=== PATIENT | female | born 1960 | race Caucasian/White ===

== ENCOUNTER → 2021-10-05 | Outpatient (CLI) | payer BC ==
--- NOTE | 2021-10-06 09:06 | CT ---
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 CONTRAST: CT scan of the chest, abdomen and pelvis is performed with Oral Contrast and with IV Contrast, patien t injected with 70 mL of Isovue 300. FINDINGS: LUNGS: There is some motion due to patient's breath. The lungs are grossly clear, there is no concern ing parenchymal mass or nodule identified. There is no pleural effusion or pneumothorax seen. The tracheobronchial tree is patent. MEDIASTINUM: There are no greater than 1 cm hilar or mediastinal lymph nodes. No pericardial effusi on is seen. AORTA: No significant abnormality is seen. OTHER: No additional significant abnormality is seen. LIVER/GB: Liver shows low attenuation possibly due to hepatic steatosis, liver is borderline enlarged , gallbladder unremarkable. PANCREAS: No significant abnormality is seen. SPLEEN: No significant abnormality is seen. ADRENALS: No significant abnormality is seen. KIDNEYS: No significant abnormality is seen. REPRODUCTIVE ORGANS: No gross abnormality seen. BOWEL: There is an infraumbilical abdominal wall hernia containing bowel loops, no evident obstructi on, some increased density within the surrounding fat suggests some inflammatory change. FREE AIR: No Free Air visible. ASCITES: None seen. RETROPERITONEAL ADENOPATHY: No retroperitoneal adenopathy is seen. LYMPH NODES: No greater than 1 cm abdominal or pelvic lymph nodes are appreciated. URINARY BLADDER: No significant abnormality is seen. PELVIC ADENOPATHY: None visualized. OSSEOUS STRUCTURES: Degenerative disc changes, multilevel spondylosis noted, facet arthropathy is gr eatest in the lumbar spine. IMPRESSION: Anterior abdominal wall hernia as described. No evident metastatic disease.
== END | disposition home or self-care (01) ==
LOC: RADCTMAIN 17:08
PROVIDERS: ATTEND Ophthalmology
DX: C69.31 Malignant neoplasm of right choroid (principal)
CPT/HCPCS: 71260; 74177; Q9967

== ENCOUNTER 2022-02-28 10:19 | Observation (INO) | payer BC ==
[~2022-02-28 10:19] MED LIST: ACETAMINOPHEN TAB 500 MG TAB PO PRN; HEPARIN SODIUM,PORCINE/PF 5,000 UNIT/0.5 ML SYRINGE SQ PRN; MIDAZOLAM 2 MG/2 ML VIAL IV PRN; ONDANSETRON 4 MG/2 ML VIAL IVP ONE; SCOPOLAMINE 1 MG/72 HR PATCH TRANSDERM ONE
--- NOTE | 2022-02-28 10:31 | P.GSHP ---
History of Present Illness H&P Date: 02/28/22 Chief Complaint: Abdominal wall hernia 61-year-old female here today for elective repair abdominal wall hernia. Bulge present at the umbilicus. Recent CAT scan shows fat and small bowel within the hernia. Having more frequent episodes of discomfort there. No nausea or vo miting. 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, malignant melanoma to eye, umbilical hernia History of Any Multi-Drug Resistant Organisms: None Reported Past Surgical History: Section Additional Past Surgical History / Comment(s): surgery to remove rt eye, Past Anesthesia/Blood Transfusion Reactions: No Reported Reaction Smoking Status: Never smoker Medications and Allergies Home Medications Medication Instructions Recorded Confirmed Type Aspirin [Adult Low Dose Aspirin EC] 81 mg PO DAILY 02/24/22 02/24/22 History Bisoprolol Fumarate [Zebeta] 10 mg PO DAILY 02/24/22 02/24/22 History Multivitamins, Thera [Multivitamin 1 tab PO DAILY 02/24/22 02/24/22 History (formulary)] Allergies Allergy/AdvReac Type Severity Reaction Status Date / Time No Known Allergies Allergy Verified 02/24/22 13:55 Surgical - Exam Physical exam: General: Well-developed, well-nourished HEENT: Normocephalic, sclerae nonicteric Abdomen: Nontender, nondistended, incarcerated hernia near the umbilical region, unable to palpate fascial defect Extremities: No edema Neuro: Alert and oriented Assessment and Plan (1) Abdominal wall hernia Narrative/Plan: 61-year-old female with abdominal wall hernia. Whether this represents an incisional or umbilical hernia unclear at this time. We'll proceed with open repair with mesh at this time. Risks of bleeding, infection, recurrence, bladder and bowel injury, numbness, nerve injury were discussed with the patient. The patient understands and wishes to proceed. Current Visit: Yes Status: Acute Code(s): K43.9 - VENTRAL HERNIA WITHOUT OBSTRUCTION OR GANGRENE SNOMED Code(s): 659034017
[2022-02-28 11:18] LABS: Glucose,Whole Blood 264 mg/dL (70-110)
[2022-02-28] MEDS: LACTATED RINGERS 1,000 ML IV SCH (11:18)
[2022-02-28] MEDS: DEXAMETHASONE SOD PHOSPHATE 4 MG/ML 1 ML VIAL IV ONE ×2 (11:19→17:52)
[2022-02-28 11:25] LABS: Glucose,Whole Blood 246 mg/dL (70-110)
[2022-02-28] MEDS ORDERED: INSULIN ASPART (NovoLOG) 100 UNIT/ML VIAL SQ ONE (11:28)
[2022-02-28] MEDS ORDERED: LIDOCAINE 2% INJ 20 MG/ML (2 ML VIAL) ONE (11:38)
[2022-02-28] MEDS ORDERED: MIDAZOLAM 2 MG/2 ML VIAL ONE (11:38)
[2022-02-28] MEDS ORDERED: fentaNYL (PF) 50 MCG/ML 2 ML AMP ONE (11:38)
[2022-02-28] MEDS ORDERED: ROCURONIUM 10 MG/ML (5 ML VIAL) IV ONE (11:38)
[2022-02-28] MEDS ORDERED: PROPOFOL 10 MG/ML 20 ML VIAL IV ONE (11:38)
[2022-02-28] MEDS ORDERED: HYDROmorphone (PF) 1 MG/ML ONE (11:38)
[2022-02-28] MEDS ORDERED: BUPIVACAINE (PF) 0.25% 30 ML VIAL SQ ONE (12:02)
[2022-02-28] MEDS ORDERED: NALOXONE 0.4 MG/ML 1 ML VIAL IV PRN (13:29)
[2022-02-28] MEDS ORDERED: ONDANSETRON 4 MG/2 ML VIAL IVP PRN (13:31)
[2022-02-28] MEDS ORDERED: traMADol 50 MG TAB PO PRN (13:31)
[2022-02-28] MEDS ORDERED: HYDROmorphone 1 MG/ML 1 ML SYRINGE IVP PRN (13:31)
--- NOTE | 2022-02-28 13:38 | P.OP ---
Date of Procedure: 02/28/22 Procedure(s) Performed: PREOPERATIVE DIAGNOSIS: Incarcerated abdominal wall hernia POSTOPERATIVE DIAGNOSIS: Incarcerated umbilical and ventral hernia PROCEDURE: Open repair incarcerated umbilical and ventral hernia with mesh SURGEON: Dr. Pretty ANESTHESIA: General OPERATIVE PROCEDURE DETAILS: Patient placed on the operating table in the supine position. Abdomen was prepped and draped in usual sterile fashion. The previous incision was re-incised and extended superiorly. This was later lengthened further superiorly after a second incarcerated ventral hernia was found. Dissection through the subcutaneous tissues took place using electrocautery. A large hernia was identified. The hernia sac was carefully dissected down to the level of the fascia where it was excised. This appeared to represent an umbilical hernia. There was omentum and small bowel present within the hernia sac. The structures reduced back into the peritoneal cavity. The preperitoneal space was dissected. Unfortunately I could not dissect the preperitoneal space on the right-hand side as it kept tearing because it was so thin. As I was dissecting superiorly we encountered an incarcerated ventral hernia. This was reduced. The fascia was cleared above and below the hernia sites. The 2 defects were included into one fascial opening. Initially the 2 defects measured 1.5 x 1.5 cm for the ventral and 3 x 4 cm for the umbilical. These were included into one fascial defect measuring 6 x 4 cm. The 8 x 12 cm Ventrio mesh was utilized and placed beneath the fascia. This is sutured to the fascia using trans-fascial 0 Ethibond sutures. The secure strap was also utilized circumferentially. The fascial defect was then reapproximated using interrupted mattress sutures with 0 Ethibond. The folding edge was sutured down using 0 Ethibond sutures as well. A drain was placed anterior to the fascial closure exiting through the left lower quadrant. This was sutured to the skin using a 3-0 silk stitch. The subcutaneous tissues were closed using 3-0 Vicryl sutures. The skin was closed using bandar. Sterile dressings were applied. TYPE OF MESH USED: 12 x 8 cm Ventrio LOCATION OF MESH: Sub-lay partially intraperitoneal FIXATION: Trans-fascial 0 Ethibond sutures PREOPERATIVE DISCUSSION ON SMOKING CESSASTION: Yes PREOPERATIVE DISCUSSION ON MORBID OBESITY: Yes PREOPERATIVE DISCUSSION ON APPROPRIATE USE OF NARCOTIC USE: Yes PREOPERATIVE EDUCATION: Multi Modal, Smoking Cessation and Weight Loss with BMI over 35. DISPOSITION: Stable to recovery room
[2022-02-28 13:56] LABS: Glucose,Whole Blood 203 mg/dL (70-110)
[2022-02-28] MEDS ORDERED: LACTATED RINGERS 1,000 ML IV ONE (13:57)
[2022-02-28] MEDS: HYDROmorphone 0.5 MG/0.5 ML SYRINGE IVP PRN ×2 (14:19→15:13)
[2022-02-28] MEDS ORDERED: PANTOPRAZOLE 40 MG/10 ML VIAL IV SCH (16:30)
[2022-02-28] MEDS: KETOROLAC 15 MG/ML 1 ML VIAL IVP SCH ×2 (18:54→23:56)
[2022-02-28] MEDS: D5-0.45% NACL WITH KCL 20MEQ/L 1,000 ML IV SCH (18:54)
[2022-02-28] MEDS: DOCUSATE 100 MG CAP PO SCH (21:38)
--- NOTE | 2022-02-28 22:50 | P.CONS ---
History of Present Illness - Reason for Consult Consult date: 02/28/22 post op medical management - Chief Complaint ubilical hernia - History of Present Illness 61 year old female with obesity and hypertension controlled with meds patient presented today for scheduled umbilical hernia repair , tolerated procedure well, no observed immediate post op complications, denies any fever, chills, chest pain , SOB. abd pain well controlled post op. tolerated PO intake patient denies any smoking, illicit drugs, or heavy alcohol Review of Systems Pertinent positives as noted in HPI. 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, malignant melanoma to eye, umbilical hernia History of Any Multi-Drug Resistant Organisms: None Reported Past Surgical History: Section Additional Past Surgical History / Comment(s): surgery to remove rt eye, Past Anesthesia/Blood Transfusion Reactions: No Reported Reaction Smoking Status: Never smoker Medications and Allergies Home Medications Medication Instructions Recorded Confirmed Type Aspirin [Adult Low Dose Aspirin EC] 81 mg PO DAILY 02/24/22 02/28/22 History Bisoprolol Fumarate [Zebeta] 10 mg PO DAILY 02/24/22 02/28/22 History Multivitamins, Thera [Multivitamin 1 tab PO DAILY 02/24/22 02/28/22 History (formulary)] Allergies Allergy/AdvReac Type Severity Reaction Status Date / Time acetaminophen [From Tylenol] AdvReac PALPITATION Verified 02/28/22 11:05 S Physical Exam Vitals: Vital Signs Temp Pulse Resp BP Pulse Ox 02/28/22 20:03 98.4 F 74 16 143/72 93 L 02/28/22 16:36 98.5 F 76 16 137/81 91 L 02/28/22 15:45 67 16 116/56 97 02/28/22 15:15 68 16 118/57 98 02/28/22 15:13 63 16 122/56 98 02/28/22 14:52 59 L 16 125/60 98 02/28/22 14:31 66 16 122/58 98 02/28/22 14:19 68 16 143/61 95 02/28/22 14:14 67 16 132/63 99 02/28/22 14:00 67 16 132/63 99 02/28/22 13:55 68 16 127/58 97 02/28/22 13:47 68 16 127/58 97 02/28/22 13:38 97.2 F L 70 18 141/64 98 02/28/22 11:15 97.8 F 72 16 154/93 97 Intake and Output 02/28/22 02/28/22 02/28/22 06:59 14:59 22:59 Intake Total 1050 Output Total 10 Balance 1040 Intake: IV 1050 Output: Estimated Blood Loss 10 Other: # Voids 1 Weight 103.5 kg Constitutional: No acute distress, conversant, pleasant Eyes: Anicteric sclerae, moist conjunctiva, Lt Pupil round reactive to light, prosthetic right eye ENMT: NC/AT Oropharynx clear, no erythema, or exudates Neck: Supple, no masses, or JVD No carotid bruits No thyromegaly Lungs: Clear to auscultation Clear to percussion Normal respiratory effort, no accessory muscle use Cardiovascular: Heart regular in rate and rhythm, No murmurs, gallops, or rubs No peripheral edema Abdominal: Soft diffuse mild discomfort to palpation , Normoactive bowel sounds abd binder in place, dry intact and clean Skin: Normal temperature, tone, texture, turgor Extremities: No digital cyanosis No clubbing Pedal pulses intact and symmetrical Radial pulses intact and symmetrical No calf tenderness Psychiatric: Alert and oriented to person, place and time Appropriate affect fair judgement Neuro Muscles Strength 5/5 in all 4 extremities Sensation to light touch grossly present throughout Cranial nerves II-XII grossly intact Lymphatics: no palpable cervical or supraclavicular lymph nodes Results Labs: Abnormal Lab Results - Last 24 Hours (Table) 02/28/22 02/28/22 02/28/22 Range/Units 11:16 11:22 13:53 POC Glucose (mg/dL) 264 H 246 H 203 H (70-110) mg/dL Assessment and Plan Assessment: umblical hernia post surgical repair, POD zero pain control IVF hydration advance diet as tolerated hypertension controlled resume home meds, bisoprolol full code DVT PPX mechanical
[2022-03-01] MEDS: D5-0.45% NACL WITH KCL 20MEQ/L 1,000 ML IV SCH ×3 (03:38→22:12)
[2022-03-01] MEDS: KETOROLAC 15 MG/ML 1 ML VIAL IVP SCH ×4 (06:12→23:38)
[2022-03-01] MEDS: LACTATED RINGERS 1,000 ML IV SCH (06:38)
[2022-03-01] MEDS: BISOPROLOL 5 MG TAB PO SCH (09:10)
[2022-03-01] MEDS: PANTOPRAZOLE 40 MG TABLET PO SCH (09:11)
[2022-03-01] MEDS: DOCUSATE 100 MG CAP PO SCH ×2 (09:11→21:59)
[2022-03-01 09:22] LABS: African American GFR (CKD) 106.9 (60.0-200.0); Albumin 3.4 g/dL (3.8-4.9); Albumin/Globulin Ratio 1.48 (1.60-3.17); Anion Gap 11.6 mmol/L (10.00-18.00); BUN/Creat Ratio 14.43 Ratio (12.00-20.00); Blood Urea Nitrogen 10.1 mg/dL (9.0-27.0); Calcium 8.7 mg/dL (8.7-10.3); Carbon Dioxide 26.4 mmol/L (20.0-27.5); Globulin 2.3 g/dL (1.6-3.3); Non-African American GFR(CKD) 92.2 (60.0-200.0); Potassium 4.1 mmol/L (3.5-5.5); Total Bilirubin 0.7 mg/dL (0.30-1.20); Total Protein 5.7 g/dL (6.2-8.2)
[2022-03-01 12:07] LABS: Basophils % (A) 0 %; Eosinophils # (A) 0.1 k/uL (0-0.7); Eosinophils % (A) 1 %; HCT 41.3 % (34.0-46.0); Lymphocytes # (A) 1.9 k/uL (1.0-4.8); Lymphocytes % (A) 23 %; MCH 33.8 pg (25.0-35.0); MCHC 36.3 g/dL (31.0-37.0); MCV 93.2 fL (80.0-100.0); Mean Platelet Volume 8.1; Monocytes # (A) 0.6 k/uL (0-1.0); Monocytes % (A) 7 %; Neutrophils # (A) 5.7 k/uL (1.3-7.7); Neutrophils % (A) 67 %; Platelet Count 180 k/uL (150-450); RBC 4.43 m/uL (3.80-5.40); RDW 12.7 % (11.5-15.5); WBC 8.5 k/uL (3.8-10.6)
--- NOTE | 2022-03-01 13:15 | P.PN ---
Subjective Progress Note Date: 03/01/22 CHIEF COMPLAINT: Incarcerated umbilical and ventral hernia HISTORY OF PRESENT ILLNESS: Patient is postop day #1 status post open repair of incarcerated umbilical and ventral hernia with mesh. Patient reports having a lot of pain with movement. She has not been out of bed since surgery. She denies any nausea or vomiting. She is having a small amount of flatus. She is tolerating diet. Afebrile. WBC is 8.5 Hgb is 15 platelets 180 sodium is 136 potassium 4.1 creatinine 0.7 PHYSICAL EXAM: VITAL SIGNS: Reviewed. GENERAL: Well-developed in no acute distress. HEENT: No sclera icterus. Extraocular movements grossly intact. Moist buccal mucosa. Head is atraumatic, normocephalic. ABDOMEN: Soft. Nondistended. Mild incisional tenderness. Incisional dressing clean dry and intact. RADHA drain serosanguineous 30 mL NEUROLOGIC: Alert and oriented. Cranial nerves II through XII grossly intact. ASSESSMENT: 1. Incarcerated umbilical and ventral hernia status post open repair with mesh PLAN: -Continue pain management -Continue regular diet -Encouraged patient to increase activity level -Agree with PT OT consults -GI prophylaxis Protonix and DVT prophylaxis subcu Heparin Physician Instrumentation Fitter note has been reviewed by physician. Signing provider agrees with the documented findings, assessment, and plan of care. Patient seems to be doing well today. She is out of bed to the chair currently. Increased discomfort with movement. Gradually increase activity. Possible discharge tomorrow or . Objective - Vital Signs Vital signs: Vital Signs Temp 98.7 F 03/01/22 05:00 Pulse 73 03/01/22 05:00 Resp 16 03/01/22 05:00 BP 144/73 03/01/22 05:00 Pulse Ox 95 03/01/22 05:00 FiO2 Intake & Output 02/28/22 03/01/22 03/01/22 18:59 06:59 18:59 Intake Total 1050 1777 Output Total 10 30 Balance 1040 1747 Weight 103.5 kg Intake: IV 1050 Intake, IV Titration 1000 Amount D5-0.45% NaCl with KCl 1000 20Meq/l 1,000 ml @ 100 mls/hr IV .Q10H DIVINA Rx#: [id number] Oral 777 Output: Drainage 30 Right Lower Abdomen 30 Estimated Blood Loss 10 Other: Voiding Method Toilet # Voids 1 3 - Labs CBC & Chem 7: 03/01/22 11:52 03/01/22 06:08 Labs: Abnormal Lab Results - Last 24 Hours (Table) 02/28/22 03/01/22 Range/Units 13:53 06:08 Glucose 257 H (70-110) mg/dL POC Glucose (mg/dL) 203 H (70-110) mg/dL Total Protein 5.7 L (6.2-8.2) g/dL Albumin 3.4 L (3.8-4.9) g/dL Albumin/Globulin Ratio 1.48 L (1.60-3.17) g/dL
[2022-03-01] MEDS: HEPARIN SODIUM,PORCINE/PF 5,000 UNIT/0.5 ML SYRINGE SQ SCH ×2 (13:39→21:59)
--- NOTE | 2022-03-01 13:55 | P.PN ---
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 She is currently admitted under Gen. surgery team status post open repair of incarcerated umbilical and ventral hernia completed 02/28/[address] Pretty. We have been consulted for medical management throughout patient's hospitalization. Physical exam: Patient seen and fully evaluated at bedside this morning. Patient reports she is tolerating oral intake and denies having any postoperative nausea or vomiting at this time. Patient denies passing any flatus or having a bowel movement in postop period. Patient educated on the importance of splinting, deep breathing and coughing exercises as well as use of incentive spirometry. Morning labs reviewed and stable with the exception of elevated glucose levels. We will place patient on glycemic protocol with NovoLog sliding scale and obtain a STAT hemoglobin A1c. Vital signs reviewed and stable. General: Nontoxic, no distress and appears stated age. Derm: Skin warm and dry, normal coloration for ethnicity. Head: Atraumatic, normocephalic and symmetric. Eyes: EOMs intact, no lid lag, and anicteric sclera Mouth: no lip lesions, mucus membranes moist Cardiovascular: regular rate and rhythm with normal S1S2, systolic murmur, positive posterior tibial pulses bilaterally, and cap refill < 2 seconds. Lungs: Respirations even, regular, and unlabored on room air. Lungs CTA bilaterally, no rhonchi, no rales, no wheezing, and no accessory muscle usage. Abdominal: soft, nontender to palpation, no guarding, no appreciable organomegaly. Obese Ext: ROM intact. No gross muscle atrophy, no edema, no contractures Neuro: Speech clear, face symmetrical and CN II-XII grossly intact with no noted focal neuro deficits Psych: Alert and oriented to person, place, time, and situation. Appropriate and pleasant affect. Assessment and Plan of Care: Status post open repair of incarcerated umbilical and ventral hernia -Management per primary admitting general surgery team including wound/drain care, DVT prophylaxis, pain management, and advancement of diet. -Continue GI prophylaxis with Protonix 40 mg daily. -Encourage coughing, deep breathing, and splinting. -Encourage use of incentive spirometry 10-15 times hourly while awake. -Currently DVT prophylaxis with heparin. Hyperglycemia -Patient will be placed on glycemic protocol with NovoLog sliding scale and a stat hemoglobin A1c to be obtained. Hypertension Monitor vital signs and continue daily medication regimen with bisoprolol. History of malignant melanoma of right eye -Provide assistance only as needed. Obesity with BMI of 43.1 kg/m -Recommend structured outpatient weight management program. Thank you for allowing us to participate in the care of this pleasant patient. Do not hesitate to contact us with questions. Someone can be reached from the [facility] hospitalist group all hours of the day at [phone] or via [facility]. Objective - Vital Signs Vital signs: Vital Signs Temp 98.7 F 03/01/22 05:00 Pulse 73 03/01/22 05:00 Resp 16 03/01/22 05:00 BP 144/73 03/01/22 05:00 Pulse Ox 95 03/01/22 05:00 FiO2 Intake & Output 02/28/22 03/01/22 03/01/22 18:59 06:59 18:59 Intake Total 1050 1777 Output Total 10 30 Balance 1040 1747 Weight 103.5 kg Intake: IV 1050 Intake, IV Titration 1000 Amount D5-0.45% NaCl with KCl 1000 20Meq/l 1,000 ml @ 100 mls/hr IV .Q10H DIVINA Rx#: [id number] Oral 777 Output: Drainage 30 Right Lower Abdomen 30 Estimated Blood Loss 10 Other: # Voids 1 3 - Labs CBC & Chem 7: 03/01/22 11:52 03/01/22 06:08 Labs: Abnormal Lab Results - Last 24 Hours (Table) 02/28/22 02/28/22 02/28/22 Range/Units 11:16 11:22 13:53 POC Glucose (mg/dL) 264 H 246 H 203 H (70-110) mg/dL Assessment and Plan Assessment: Attending note Chente Verdugo NP rendered care for this patient independently, reviewed the findings and plan as documented in the note above. I did not physically speak with our examined the patient on this date.
[2022-03-01] MEDS ORDERED: DEXTROSE 50% SYRINGE 50 ML IVP PRN ×2 (19:09)
[2022-03-01 21:58] LABS: Glucose,Whole Blood 251 mg/dL (70-110)
[2022-03-01] MEDS: INSULIN ASPART (NovoLOG) 100 UNIT/ML VIAL SQ SCH (21:59)
[2022-03-02] MEDS: KETOROLAC 15 MG/ML 1 ML VIAL IVP SCH ×2 (05:40→13:50)
[2022-03-02] MEDS: LACTATED RINGERS 1,000 ML IV SCH (07:57)
[2022-03-02 08:01] LABS: Glucose,Whole Blood 250 mg/dL (70-110)
[2022-03-02] MEDS: BISOPROLOL 5 MG TAB PO SCH (09:07)
[2022-03-02] MEDS: DOCUSATE 100 MG CAP PO SCH (09:07)
[2022-03-02] MEDS: INSULIN ASPART (NovoLOG) 100 UNIT/ML VIAL SQ SCH (09:07)
[2022-03-02] MEDS: PANTOPRAZOLE 40 MG TABLET PO SCH (09:07)
[2022-03-02] MEDS: HEPARIN SODIUM,PORCINE/PF 5,000 UNIT/0.5 ML SYRINGE SQ SCH (09:08)
[2022-03-02] MEDS: D5-0.45% NACL WITH KCL 20MEQ/L 1,000 ML IV SCH (09:08)
[2022-03-02 11:42] LABS: Glucose,Whole Blood 263 mg/dL (70-110)
[2022-03-02 11:57] VITALS: BP 129/77; PULSE 63; RESP 18; TEMP 98.3
--- NOTE | 2022-03-02 14:04 | P.DS ---
Providers Date of admission: 03/01/22 09:09 Expected date of discharge: 03/02/22 Attending physician: Bakari Pretty Consults: 02/28/22 13:31 Consult Physician Routine Consulting Provider: Mable Howard Consult Reason/Comments: Medical management Do you want consulting provider notified?: Yes Primary care physician: Haresh Smith Hospital Course: Discharge diagnosis 1. Incarcerated umbilical and ventral hernia status post open repair of incarcerated umbilical and ventral hernia with mesh 2. New diagnosis of Diabetes mellitus seen by medicine service and started on diabetes medications Hospital course This is a 61-year-old female who presented for an elective repair of abdominal wall hernia. Patient is status post open repair of incarcerated umbilical and ventral hernia with mesh. Patient's pain is controlled. She is up and ambulating. She is tolerating diet. She is having bowel movements and flatus. Afebrile. She is stable for discharge. Please refer to chart for any further details. Physician Cigarette Making Machine Operator note has been reviewed by physician. Signing provider agrees with the documented findings, assessment, and plan of care. Patient doing well today. Pain is better controlled. RADHA drain serosanguineous. May discharge today. Follow-up 1 to 2 weeks. Patient Condition at Discharge: Stable Plan - Discharge Summary Discharge Rx Participant: No New Discharge Prescriptions: New Semaglutide [Rybelsus] 3 mg PO DAILY 30 Days #30 tab metFORMIN HCL 500 mg PO BID 30 Days #60 tablet traMADol HCl [Ultram] 50 mg PO Q6HR PRN 3 Days #12 tab PRN Reason: Pain Continue Bisoprolol Fumarate [Zebeta] 10 mg PO DAILY Multivitamins, Thera [Multivitamin (formulary)] 1 tab PO DAILY Aspirin [Adult Low Dose Aspirin EC] 81 mg PO DAILY Discharge Medication List Aspirin [Adult Low Dose Aspirin EC] 81 mg PO DAILY 02/24/22 [History] Bisoprolol Fumarate [Zebeta] 10 mg PO DAILY 02/24/22 [History] Multivitamins, Thera [Multivitamin (formulary)] 1 tab PO DAILY 02/24/22 [History] Semaglutide [Rybelsus] 3 mg PO DAILY 30 Days #30 tab 03/02/22 [Rx] metFORMIN HCL 500 mg PO BID 30 Days #60 tablet 03/02/22 [Rx] traMADol HCl [Ultram] 50 mg PO Q6HR PRN 3 Days #12 tab 03/02/22 [Rx] Follow up Appointment(s)/Referral(s): Bakari Pretty MD [Medical Doctor] - 03/16/22 3:45 pm [facility] [NON-STAFF] - 1 Week Haresh Smith MD [Primary Care Provider] - 1-2 Days (Patient needs to call doctors office to make a follow up appointment) Patient Instructions/Handouts: Tramadol (By mouth), Metformin (By mouth), Semaglutide (By mouth), Type 2 Diabetes in Adults: New Diagnosis (DC) Activity/Diet/Wound Care/Special Instructions: No driving while taking Ultram No lifting over 10 pounds You may shower. No soaking or tub baths for 2 weeks Very light activity until you are reevaluated at your follow up appointment with your surgeon Keep a log of RADHA drain output and bring with you to your follow-up appointment Milk/strip drains 2-3 times a day Patient is to call office when RADHA drain output is less than 20 mL for 24 hour period for 2 days in a row. At that time patient can have RADHA drain removed in office. Discharge Disposition: HOME SELF-CARE
--- NOTE | 2022-03-02 19:10 | P.PN ---
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 She is currently admitted under Gen. surgery team status post open repair of incarcerated umbilical and ventral hernia completed 02/28/[address] Pretty. We have been consulted for medical management throughout patient's hospitalization. Patient was noted to have elevated blood glucose levels. Hemoglobin A1c was ordered resulting at 10.2%. Had long discussion with patient regarding new diagnosis of diabetes mellitus. Per recent guidelines patient being started on a GLP-1 receptor agonist Rybelsus and metformin. Patient being discharged home with glucometer and glucose testing supplies and arrangements have been made for patient to obtain all of these prior to discharge with case management. Medically, patient is stable for discharge home at this time once cleared by primary admitting general surgery team. Patient to follow-up with PCP for continued long-term monitoring and management of her newly diagnosed diabetes. Patient was also educated on lifest yle changes and diet modifications to improve hemoglobin A1c levels. Physical exam: Patient seen and fully evaluated at bedside this morning. Patient reports she is tolerating oral intake and denies having any postoperative nausea or vomiting at this time. Patient denies passing any flatus or having a bowel movement in postop period. Patient educated on the importance of splinting, deep breathing and coughing exercises as well as use of incentive spirometry. Morning labs reviewed and stable with the exception of elevated glucose levels. We will place patient on glycemic protocol with NovoLog sliding scale and obtain a STAT hemoglobin A1c. Vital signs reviewed and stable. General: Nontoxic, no distress and appears stated age. Derm: Skin warm and dry, normal coloration for ethnicity. Head: Atraumatic, normocephalic and symmetric. Eyes: EOMs intact left eye, no lid lag, and anicteric sclera of left eye. Right eye is a glass eye Mouth: no lip lesions, mucus membranes moist Cardiovascular: regular rate and rhythm with normal S1S2, systolic murmur, positive posterior tibial pulses bilaterally, and cap refill < 2 seconds. Lungs: Respirations even, regular, and unlabored on room air. Lungs CTA bilaterally, no rhonchi, no rales, no wheezing, and no accessory muscle usage. Abdominal: soft, nontender to palpation, no guarding, no appreciable organomegaly. Obese Ext: ROM intact. No gross muscle atrophy, no edema, no contractures Neuro: Speech clear, face symmetrical and CN II-XII grossly intact with no noted focal neuro deficits Psych: Alert and oriented to person, place, time, and situation. Appropriate and pleasant affect. Assessment and Plan of Care: Status post open repair of incarcerated umbilical and ventral hernia -Management per primary admitting general surgery team including wound/drain care, DVT prophylaxis, pain management, and advancement of diet. -Continue GI prophylaxis with Protonix 40 mg daily. -Encourage coughing, deep breathing, and splinting. -Encourage use of incentive spirometry 10-15 times hourly while awake. -Currently DVT prophylaxis with heparin. Newly diagnosed diabetes mellitus with hemoglobin A1c of 10.2% -Patient being started on a GLP-1 receptor agonist Rybelsus and metformin. Hypertension Monitor vital signs and continue daily medication regimen with bisoprolol. History of malignant melanoma of right eye -Provide assistance only as needed. Obesity with BMI of 43.1 kg/m -Recommend structured outpatient weight management program. Thank you for allowing us to participate in the care of this pleasant patient. Do not hesitate to contact us with questions. Someone can be reached from the [facility] hospitalist group all hours of the day at [phone] or via [employer]. Chente Verdugo NP rendered care for this patient independently, reviewed the findings and plan as documented in the note above. I did not physically speak with or examine the patient on this date. Objective - Vital Signs Vital signs: Vital Signs Temp 99.5 F 03/02/22 05:39 Pulse 86 03/02/22 05:39 Resp 20 03/02/22 05:39 BP 158/73 03/02/22 05:39 Pulse Ox 92 L 03/02/22 05:39 FiO2 Intake & Output 03/01/22 03/02/22 03/02/22 18:59 06:59 18:59 Intake Total 1200 1200 Output Total 30 Balance 1170 1200 Intake: Intake, IV Titration 1200 1200 Amount D5-0.45% NaCl with KCl 1200 1200 20Meq/l 1,000 ml @ 100 mls/hr IV .Q10H DIVINA Rx#: [id number] Output: Drainage 30 Right Lower Abdomen 30 Other: Voiding Method Toilet Toilet # Voids 1 - Labs CBC & Chem 7: 12/13/22 11:52 03/01/22 06:08 Labs: Abnormal Lab Results - Last 24 Hours (Table) 03/01/22 03/01/22 03/01/22 Range/Units 06:08 11:52 21:37 Glucose 257 H (70-110) mg/dL POC Glucose (mg/dL) 251 H (70-110) mg/dL Hemoglobin A1c 10.2 H (0.0-6.0) % Total Protein 5.7 L (6.2-8.2) g/dL Albumin 3.4 L (3.8-4.9) g/dL Albumin/Globulin Ratio 1.48 L (1.60-3.17) g/dL 03/02/22 Range/Units 07:59 Glucose (70-110) mg/dL POC Glucose (mg/dL) 250 H (70-110) mg/dL Hemoglobin A1c (0.0-6.0) % Total Protein (6.2-8.2) g/dL Albumin (3.8-4.9) g/dL Albumin/Globulin Ratio (1.60-3.17) g/dL
== END 2022-03-02 16:23 | disposition home or self-care (01) ==
LOC: OR 10:19 → 5NMEDONC 13:42 → OR 03-01 09:09
PROVIDERS: ADMIT Surgery; ATTEND Surgery
DX: K43.6 Other and unspecified ventral hernia with obstruction, without gangrene (principal); K42.0 Umbilical hernia with obstruction, without gangrene; E11.65 Type 2 diabetes mellitus with hyperglycemia; I10 Essential (primary) hypertension; E66.9 Obesity, unspecified; Z68.41 Body mass index [BMI] 40.0-44.9, adult; Z85.840 Personal history of malignant neoplasm of eye; Z79.82 Long term (current) use of aspirin; Z79.899 Other long term (current) drug therapy; Z88.6 Allergy status to analgesic agent
CPT/HCPCS: 97162; 97166; 88305; 80053; 85025; 83036; 49587; 49561; 49568; G0378 ×2; C1781; J0690; J2405; J1885 ×3; J1170; J1644 ×2

== ENCOUNTER → 2024-10-11 | Outpatient (CLI) | payer MEDICARE ==
--- NOTE | 2024-10-11 14:46 | US ---
EXAMINATION TYPE: US venous doppler duplex LE LT DATE OF EXAM: 10/11/2024 2:06 PM COMPARISON: NONE CLINICAL INDICATION: Female, 64 years old with history of M79.89 SOFT TISSUE DISORDER; Left leg swell ing x couple weeks TECHNIQUE: The lower extremity deep venous system is examined utilizing real time linear array sonog dionisio with graded compression, doppler sonography and color-flow sonography. Grayscale, color doppler , spectral doppler imaging performed of the deep veins of the lower extremities FINDINGS: SIDE PERFORMED: Left VESSELS IMAGED: Common Femoral Vein Deep Femoral Vein Greater Saphenous Vein * Femoral Vein Popliteal Vein Small Saphenous Vein * Proximal Calf Veins (* superficial vessels) Left Leg: Appears negative for DVT IMPRESSION: 1. Left lower extremity ultrasound negative for deep venous thrombosis [facility], , 10/11/2024 2:43 PM
== END | disposition home or self-care (01) ==
LOC: RADUSWWP 13:47
PROVIDERS: ATTEND Emergency Medicine
DX: M79.89 Other specified soft tissue disorders (principal)

== ENCOUNTER → 2024-10-18 | Outpatient (CLI) | payer MEDICARE ==
[2024-10-18 13:03] LABS: African American GFR (CKD) 16 (>60 ml/min/1.73 sqM); Blood Urea Nitrogen 95 mg/dL (7-17); Non-African American GFR(CKD) 14 (>60 ml/min/1.73 sqM)
--- NOTE | 2024-10-18 15:16 | CT ---
EXAMINATION TYPE: CT ChestAbdPelvis wo con DATE OF EXAM: 10/18/2024 2:10 PM COMPARISON: 10/05/2021 CLINICAL INDICATION: Female, 64 years old with history of Z85.820 PERSONAL HISTORY OF MALIGNANT MELAN HILTON OF, HX OF MALIGNANT MELANOMA TECHNIQUE: CT ChestAbdPelvis wo con , with sagittal coronal reformats. If MIP/3-D images were created , there are created on a separate workstation. Contrast used: mL of , (none if empty) Oral contrast used: with Oral Contrast (none if empty) CT DLP: 1094.70 mGycm, Automated exposure control for dose reduction was used. FINDINGS: CT CHEST: Portion of the thyroid visualized is normal. There is a 0.7 cm nodule in the posterior medial right apex. Series 4 image 17. There is a 1.4 cm nod ule in the superior right hilar region. Series 4 image 22. There is a small nodule in the posterior l ateral right upper lung field. Series 4 image 25 there is a 1.2 cm nodule in the anterior right media l lung. Series 4 image 28. There is a 0.9 cm nodule posterior lateral right lung. Series 4 image 31. Small nodules in the superior segment left lower lobe. Series 4 image 33. Tiny nodules within the med ial right lung base. Series 4 image 42. There is a small left pleural effusion. No enlarged mediastinal or hilar adenopathy is evident. No significant coronary artery calcification s. The ascending aorta diameter at the level of the main pulmonary artery is 3. cm. The main pulmonary artery diameter at the bifurcation is 2.[address] ABDOMEN: Small amount of ascites is present. Multiple large masses of uncertain origin are within the left midabdomen. The largest is in the expected region of the stomach. The stomach is displaced a way. Mass measures 12.9 cm. Liver: Ill-defined large hypodense mass lateral right liver measuring 9.7 cm. Additional smaller hypo densities within the left lobe liver, example image series 3 image 60 measuring 2.8 cm. There is a ma sslike area within the anterior abdomen anterior to the liver, example image series 3 image 50 measur ing 2.6 x 4.4 cm. Spleen: Normal Pancreas: Limited in visualization. The head and proximal body appears normal. Tail is not well-visua lized likely displacement left abdominal mass is Adrenal glands: The adrenal glands are normal. Gallbladder: Normal Kidneys: No masses are evident. No hydronephrosis is present. No cysts are present. No renal stone s evident. Aorta: Vascular calcification is within the aorta. Inferior vena cava: Normal. CT PELVIS: Small amount of free fluid is within the pelvis. Loops of bowel within the abdomen and pelvis are normal. There are loops of bowel which are incom pletely distended or lack oral contrast limiting their evaluation. Oral contrast extends to the trans verse colon. Colon appears nondilated. Proximal small bowel loops lacks significant oral contrast. So me contrast is within the stomach Appendix: Normal as visualized. Urinary bladder: Decompressed limiting evaluation. Genitourinary structures: Uterus and adnexa appear within normal limits. Osseous structures: No suspicious lytic or sclerotic lesions. IMPRESSION: 1. Multiple scattered lung nodules suspicious for metastatic disease. 2. Ill-defined large masses within the liver suspicious for metastatic disease. 3. Ill-defined large soft tissue masses within the left midabdomen surrounding the stomach and possib ly involving small bowel. Metastasis is suspected. 4. Ascites. 5. Small Left pleural effusion. 6. PET CT could be performed for additional delineation [facility], Workstation: [facility], 10/18/2024 3:13 PM
== END | disposition home or self-care (01) ==
LOC: RADCTMAIN 12:10
PROVIDERS: ATTEND Family Medicine
DX: Z85.820 Personal history of malignant melanoma of skin (principal); J90 Pleural effusion, not elsewhere classified; R18.8 Other ascites; R16.0 Hepatomegaly, not elsewhere classified; R91.8 Other nonspecific abnormal finding of lung field
CPT/HCPCS: 36415; 71250; 74176; 82565; 84520